=== PATIENT | female | born 1955 | race Caucasian/White ===

== ENCOUNTER 2018-10-25 06:31 | Day surgery (SDC) | payer OTHER ==
[2018-10-25] MEDS: SOD CHLORIDE 0.9% 1,000 ML IV ×2 (07:00→09:17)
[2018-10-25] MEDS: TROPICAMIDE 1% 15 ML OPH OPER (07:31)
[2018-10-25] MEDS: DICLOFENAC 0.1% 2.5 ML OPH OPER (07:32)
[2018-10-25] MEDS: CYCLOPENTOLATE/PHENYLEPH 2 ML OPH OPER (07:32)
[2018-10-25] MEDS: MOXIFLOXACIN 0.5% 3 ML OPH OPER (07:32)
[2018-10-25] MEDS ORDERED: GENTAMICIN 80 MG INJ (08:18)
[2018-10-25] MEDS ORDERED: DEXAMETHASONE 4 MG/ML 1 ML INJ (08:18)
[2018-10-25] MEDS ORDERED: PROPOFOL 20 ML (08:26)
[2018-10-25] MEDS ORDERED: LIDOCAINE 2% (SDV) 5 ML INJ (08:26)
[2018-10-25] MEDS: NA HYALURONATE/CHONDROITIN 0.5 ML SYG (08:50)
[2018-10-25] MEDS: CARBACHOL 0.01% 1.5 ML OPH INJ (08:50)
[2018-10-25] MEDS: LIDOCAINE 4% (MPF) 5 ML INJ (08:50)
[2018-10-25] MEDS: TETRACAINE 0.5% 4 ML OPH (08:51)
[2018-10-25] MEDS ORDERED: OXYCODONE/ACETAMINOPHEN (5/325) TAB PO ×2 (09:30)
[2018-10-25] MEDS ORDERED: hydrALAzine 20 MG INJ IV (09:30)
[2018-10-25] MEDS ORDERED: LABETALOL HCL 20MG INJ IV (09:30)
[2018-10-25] MEDS ORDERED: MEPERIDINE 25 MG INJ IV (09:30)
[2018-10-25] MEDS ORDERED: MIDAZOLAM 1 MG/ML 2 ML INJ IV (09:30)
[2018-10-25] MEDS ORDERED: EPHEDrine SULFATE 50 MG/5 ML SYG IV (09:30)
[2018-10-25] MEDS ORDERED: FENTAnyl 50 MCG/ML VIAL IV ×3 (09:30)
[2018-10-25] MEDS ORDERED: ONDANSETRON 4 MG INJ IV (09:30)
== END 2018-10-25 10:52 | disposition home or self-care (01) ==
LOC: SDS 06:31
DX: H25.12 Age-related nuclear cataract, left eye (principal); I10 Essential (primary) hypertension; E11.9 Type 2 diabetes mellitus without complications; Z86.73 Personal history of transient ischemic attack (TIA), and cerebral infarction without residual deficits; Z79.82 Long term (current) use of aspirin
CPT/HCPCS: 66984; 82962

== ENCOUNTER 2018-11-29 06:20 | Day surgery (SDC) | payer OTHER ==
[~2018-11-29 06:20] MED LIST: CYCLOPENTOLATE/PHENYLEPH 2 ML OPH OPER; DICLOFENAC 0.1% 2.5 ML OPH OPER; MOXIFLOXACIN 0.5% 3 ML OPH OPER; SOD CHLORIDE 0.9% 1,000 ML IV; TROPICAMIDE 1% 15 ML OPH OPER
[2018-11-29 08:04] LABS: ADD MAN DIFF? NO
[2018-11-29 08:08] LABS: BASOPHIL # 0.1 10^3/ul (0.0-0.1); BASOPHILS % 0.5 % (0.0-2.0); EOSINOPHILS # 0.2 10^3/ul (0.0-0.5); EOSINOPHILS % 1.5 % (0.0-7.0); HEMATOCRIT 46.4 % (37.0-47.0); HEMOGLOBIN 15.2 g/dl (12.0-16.0); LYMPHOCYTES % 27.6 % (15.0-51.0); MEAN CORPUSCULAR HEMOGLOBIN 27.5 pg (29.0-33.0); MEAN CORPUSCULAR HGB CONC 32.8 g/dl (32.0-37.0); MEAN CORPUSCULAR VOLUME 83.9 fl (82.0-101.0); MEAN PLATELET VOLUME 11.5 fl (7.4-10.4); MONOCYTE # 0.9 10^3/ul (0.3-0.9); MONOCYTES % 8.4 % (0.0-11.0); NEUTROPHIL # 6.8 10^3/ul (1.6-7.5); NEUTROPHILS % 61.5 % (39.0-77.0); PLATELET COUNT 224 10^3/UL (140-415); RED BLOOD COUNT 5.53 10^6/ul (4.20-5.40); RED CELL DISTRIBUTION WIDTH 14.2 % (11.5-14.5)
[2018-11-29] MEDS: CYCLOPENTOLATE/PHENYLEPH 2 ML OPH OPER (08:13)
[2018-11-29] MEDS: SOD CHLORIDE 0.9% 1,000 ML IV (08:13)
[2018-11-29] MEDS: DICLOFENAC 0.1% 2.5 ML OPH OPER (08:13)
[2018-11-29] MEDS: MOXIFLOXACIN 0.5% 3 ML OPH OPER (08:13)
[2018-11-29] MEDS: TROPICAMIDE 1% 15 ML OPH OPER (08:14)
[2018-11-29 08:19] LABS: ADD UMIC NO; UR ASCORBIC ACID NEGATIVE (NEGATIVE); UR BACTERIA FEW /HPF (NONE SEEN); UR BILIRUBIN (Dip) NEGATIVE (NEGATIVE); UR BLOOD (Dip) NEGATIVE (NEGATIVE); UR CLARITY SLIGHTLY CLOUDY (CLEAR); UR COLOR YELLOW (YELLOW); UR GLUCOSE (Dip) 3+ mg/dL (NEGATIVE); UR KETONES (Dip) NEGATIVE (NEGATIVE); UR LEUKOCYTE ESTERASE (Dip) NEGATIVE Leu/ul (NEGATIVE); UR NITRITE (Dip) NEGATIVE (NEGATIVE); UR RBC 1 /HPF (0-5); UR SPECIFIC GRAVITY (Dip) 1.017 (1.003-1.030); UR SQUAMOUS EPITHELIAL CELL FEW /HPF (FEW); UR TOTAL PROTEIN (Dip) NEGATIVE (NEGATIVE); UR UROBILINOGEN (Dip) NEGATIVE (NEGATIVE); UR WBC 4 /HPF (0-5)
[2018-11-29 08:26] LABS: INR 0.98; PARTIAL THROMBOPLASTIN TIME 31.1 Sec (23.0-35.0); PROTIME 13.1 Sec (11.9-14.9)
[2018-11-29] MEDS ORDERED: FENTAnyl 50 MCG/ML VIAL (09:45)
[2018-11-29] MEDS ORDERED: MIDAZOLAM 1 MG/ML 2 ML INJ (09:45)
[2018-11-29] MEDS ORDERED: LIDOCAINE 2% (SDV) 5 ML INJ (10:16)
[2018-11-29] MEDS ORDERED: PROPOFOL 20 ML (10:16)
[2018-11-29] MEDS ORDERED: LIDOCAINE 4% (MPF) 5 ML INJ (10:26)
[2018-11-29] MEDS ORDERED: NA HYALURONATE/CHONDROITIN 0.5 ML SYG (10:26)
[2018-11-29] MEDS ORDERED: CARBACHOL 0.01% 1.5 ML OPH INJ (10:26)
[2018-11-29] MEDS ORDERED: GENTAMICIN 80 MG INJ (10:26)
[2018-11-29] MEDS ORDERED: DEXAMETHASONE 4 MG/ML 1 ML INJ (10:26)
[2018-11-29] MEDS ORDERED: HYDROmorphONE 1 MG/5 ML IV SYRINGE IV ×2 (10:30)
[2018-11-29] MEDS ORDERED: FENTAnyl 50 MCG/ML VIAL IV (10:30)
[2018-11-29] MEDS ORDERED: MEPERIDINE 25 MG INJ IV (10:30)
[2018-11-29] MEDS ORDERED: ONDANSETRON 4 MG INJ IV (10:30)
[2018-11-29] MEDS ORDERED: DIPHENHYDRAMINE 50 MG INJ IV (10:30)
[2018-11-29] MEDS ORDERED: LABETALOL HCL 20MG INJ IV (10:30)
== END 2018-11-29 11:34 | disposition home or self-care (01) ==
LOC: SDS 06:20
DX: H59.022 Cataract (lens) fragments in eye following cataract surgery, left eye (principal); Y77.3 Surgical instruments, materials and ophthalmic devices (including sutures) associated with adverse incidents; Y83.8 Other surgical procedures as the cause of abnormal reaction of the patient, or of later complication, without mention of misadventure at the time of the procedure; I10 Essential (primary) hypertension; E78.5 Hyperlipidemia, unspecified; Z79.82 Long term (current) use of aspirin; E66.9 Obesity, unspecified; Z68.34 Body mass index [BMI] 34.0-34.9, adult
CPT/HCPCS: 66840; 81001; 81003; 82962; 85025; 85610; 85730